=== PATIENT | male | born 1995 | race African-American/Black ===

== ENCOUNTER 2021-03-18 02:55 | Emergency (ER) | payer BC, MEDICAID ==
[~2021-03-18] VITALS: Ht 188 cm; Wt 98.0 kg
[2021-03-18] MEDS ORDERED: CEPH500T MT (04:04)
[2021-03-18] MEDS ORDERED: CEFAZOLIN 1000MG PREMIX 50 ML IV ONE (04:15)
[2021-03-18] MEDS ORDERED: LIDOCAINE HCL/EPINEPHRINE 1%-EPI 1:100,000 10 ML VIAL INFIL NR (04:15)
[2021-03-18] MEDS ORDERED: BACITRACIN ZINC OINT UDPKT TOP NR (04:15)
[2021-03-18] MEDS ORDERED: IOHEXOL-300 100 ML BOTTLE ONE (04:42)
[2021-03-18 05:05] VITALS: BP 123/69
== END 2021-03-18 05:08 | disposition home or self-care (01) ==
LOC: ER 02:55
DX: S31.0 Open wound of lower back and pelvis (principal); X99.1XXA Assault by knife, initial encounter; Y93.9 Activity, unspecified; Y92.9 Unspecified place or not applicable
CPT/HCPCS: 12001; 71260; 74177; 99285; Q9967

== ENCOUNTER 2022-11-29 21:25 | Emergency (ER) | payer BC, MEDICAID ==
[~2022-11-29] VITALS: Ht 185.4 cm; Wt 96.3 kg
[~2022-11-29 21:25] MED LIST: CEPH500T MT
[2022-11-29 21:49] VITALS: BP 124/82; O2SAT 98
[2022-11-30 00:21] VITALS: PULSE 83; RESP 16; TEMP 98.5
== END 2022-11-30 00:22 | disposition home or self-care (01) ==
LOC: ER 21:25
DX: M79.644 Pain in right finger(s) (principal); F12.10 Cannabis abuse, uncomplicated
CPT/HCPCS: 73130; 99283